=== PATIENT | female | born 1985 | race Hispanic/Latino ===

== ENCOUNTER → 2017-07-16 | Outpatient (CLI) | payer BC ==
[~2017-07-16] MED LIST: ACET1TAB12 PO; DOCU-116 PO; GADOBENATE DIMEGLUMINE 20 ML IV ONE; MO8B PO
== END ==
LOC: RAH 10:46
PROVIDERS: ATTEND Internal Medicine
DX: E04.9 Nontoxic goiter, unspecified (principal)
CPT/HCPCS: 70553; A9577